=== PATIENT | female | born 1940 | race Caucasian/White ===

== ENCOUNTER 2017-09-08 11:54 | Emergency (ER) | payer OTHER ==
[2017-09-08 12:01] VITALS: PULSE 78; TEMP 98.2
[2017-09-08] MEDS ORDERED: HYDROCODONE/APAP 5/325 TAB PO ONE (12:47)
--- NOTE | 2017-09-08 12:47 | EDPHY ---
General - History Smoking Status: Never smoked Narrative: CHIEF COMPLAINT: Hip pain, knee pain HISTORY OF PRESENT ILLNESS: Patient complains of right hip pain. She complains of increasing pain that started last night. She always has pain in the right hip but worsened yesterday. She normally takes Tylenol for this. She has had Tylenol today with no improvement. It is moderate to severe. It also now involves the right knee. It is worse when she ambulates. Improved at rest. No numbness or tingling. No new trauma or injury. She arrives by EMS and is seen shortly after arrival. Her spouse is not at bedside and she does exhibit dementia. I will review her chart. ESTABLISHED ORTHOPEDIST: Unknown REVIEW OF SYSTEMS: Ten systems reviewed and are negative unless otherwise noted in the HPI PAST MEDICAL HISTORY: Osteoarthritis, hypertension, dementia PAST SURGICAL HISTORY: No recent surgeries SOCIAL HISTORY: Nonsmoker. Lives in a intermediate with her spouse FAMILY HISTORY: Noncontributory EXAMINATION General Appearance: Alert, no distress HEENT: Normocephalic atraumatic. Pupils equal round reactive. Neck: Supple nontender. Painless range in all planes Respiratory: Lungs are clear in all estrada. No crackles or diminishment. No wheezing Cardiovascular: Regular rhythm. No murmur. Pulses intact symmetrically in DP and PT. Neurological: Alert to baseline per spouse and previous documentation. Sensory symmetric in the thighs and shins. No foot drop. Strength is 5/5 in both lower extremities. Skin: Warm and dry, no rash. No petechiae or purpura. No warmth fluctuance or induration Extremities: Tenderness of the right hip that is nonspecific. Tenderness of the right knee that is difficult to pinpoint. Range of motion is symmetric passively. Unable to bear weight at this time. No shortening or rotation of the right hip. Neurovascular intact distal to the area. Psychiatric: Mood and affect normal DIFFERENTIAL DIAGNOSES: Including but not limited to osteoarthritis, fracture, dislocation, contusion, hematoma MDM: 12:15 p.m. Complaints of right hip and knee pain without known fall. The patient does exhibit advanced dementia and there is no at bedside. I will discuss with nurse and chart review for further information. She exhibits no outward signs of trauma and vital signs are stable. I have ordered x-rays of the hip and knee. 12:45 p.m. X-rays as read by me reveal no acute findings. Patient re-evaluated in conjunction with Cinda GIRON. The patient's spouse is now bedside. She does have history of dementia that he corroborates. She is complaining of right hip pain that worsened this morning. She has been on Tylenol for this but the pain has increased starting last night. There is no fall or injury. She has pain in this area that worsens with the weather at times. She has no numbness or tingling distally. She has no evidence of septic joint. No complaints of pain anywhere else. She is asking for pain medication. I verified her medications on her OCT from [facility]. She received 1000 mg of Tylenol at 8:00 a.m.. I have ordered [place] 5/325. quality control manager will be involved as well. 1:15 p.m. Patient's pain is improving we will attempt an ambulatory test. 1:30 p.m. Patient has ambulated in the coulter with no assistance. She is stable without ataxia. I have re-evaluated the patient. She still has mild pain in the hip but it is tolerable. There is no evidence of septic joint, cellulitis or abscess. We discussed the nature of pain control and discussed discharge back to her facility with [facility]. She is comfortable this plan. I recommended that she return to ED in 24-48 hours if no improvement or any worsening symptoms, fever, redness or warmth. RN will contact the nursing facility to discuss physician evaluation and possible PT evaluation. We discussed ED precautions. She is discharged in stable condition. SUPERVISION: Patient was independently examined, but I discussed the case with my secondary supervising physician Dr. Cagle ([facility]) The patient was evaluated and managed by the physician dental hygiene administrative assistant. I have reviewed this chart and I agree with the findings and plan of care as documented , as indicated by my signature. I am the secondary supervising physician. ( Lisy Cagle) - Objective Vital Signs: Initial Vital Signs Temperature (C) 36.8 C 09/08/17 11:59 Heart Rate 78 09/08/17 11:59 Respiratory Rate 16 09/08/17 11:59 Blood Pressure 167/87 H 09/08/17 11:59 O2 Sat (%) 100 09/08/17 11:59 O2 Delivery Mode Room Air Allergies/Adverse Reactions: No Known Allergies Allergy (Verified 06/07/16 14:13) Home Medications: Medication Instructions Recorded FLUoxetine [Prozac 20 MG (*)] 20 mg PO DAILY #0 cap 12/13/15 traZODone [traZODONE 100MG (*)] 50 - 100 mg PO HS PRN 03/05/16 Losartan/Hydrochlorothiazide 1 each PO DAILY 08/15/16 [Losartan-Hctz 100-25 mg Tab] Acetaminophen [Tylenol 325mg (*)] 650 mg PO Q4HRS PRN #0 tab 08/18/16 Lactulose [Cephulac 20 gm/30 ml 20 gm PO TID PRN #0 ml 08/18/16 oral soln (*)] Magnesium Hydroxide [Milk of 30 ml PO DAILY PRN #0 udcup 08/18/16 Magnesia (*)] Ondansetron Odt [Zofran Odt 4 mg 4 mg PO Q4HRS PRN #0 tab 08/18/16 (*)] Polyethylene Glycol 3350 [Miralax 17 gm PO DAILY PRN #0 pkt 08/18/16 17 gm (*)] Sennosides/Docusate Sodium 1 - 2 tab PO BID #0 tab 08/18/16 [Senokot-S] Hydrocodone/APAP 5/325 [[place] 1 - 2 tab PO Q4H PRN #13 tab 09/08/17 5/325 (*)] Medications Given: Discontinued Medications Hydrocodone Bitart/Acetaminophen ([place] 5/325) 1 tab PO EDNOW ONE Stop: 09/08/17 12:48 Last Admin: 09/08/17 12:49 Dose: 1 tab Hydrocodone Bitart/Acetaminophen ([place] 5/325mg Prepack#6) 1 btl TAKEHOME EDNOW ONE Stop: 09/08/17 15:05 Last Admin: 09/08/17 15:13 Dose: 1 btl Departure - Departure Disposition: Home, Routine, Self-Care Clinical Impression: Hip pain, right, Osteoarthritis Condition: Good Instructions: Hydrocodone/Acetaminophen (By mouth), Osteoarthritis (ED) Additional Instructions: 1. Pain medication as prescribed as needed: You may take Tylenol 1000 mg by mouth every 4-6 hours, as needed for pain. You may also take Ibuprofen (Motrin/Advil) every 6 hours by mouth with food, as needed for pain, for 5 days. If you need Ibuprofen beyond 5 days, you should consult your primary care physician to decide whether or not ongoing use is recommended. You may take [place], 1 tablet by mouth, every 4-6 hours as needed for severe pain, but you should not take this together with Tylenol, as [place] has Tylenol in it. Also, [place] will make you drowsy, so be careful when taking it. 2. Contact your primary care physician for evaluation and possible PT referral. 3. ED precautions for worsening pain, redness, warmth, fever. 4. Repeat evaluation in 24 hrs if no improvement. Referrals: Brenda Faustin MD [Primary Care Provider] - As per Instructions Prescriptions: Hydrocodone/APAP 5/325 [[place] 5/325 (*)] 1 - 2 tab PO Q4H PRN #13 tab PRN Reason: Pain, Moderate
[2017-09-08] MEDS ORDERED: HYDROCOD/APAP 5/325 PREPACK#6 BTL TAKEHOME ONE (15:04)
[2017-09-08 15:54] VITALS: BP 125/78; RESP 16; O2SAT 95
--- NOTE | 2017-09-08 16:45 | ASMTCMCOM ---
CM Note CM Note Notes: Patient presented to the ED via EMS from [facility]. Patient's Minh Court later arrived after being dropped off by a friend. Minh states he also lives at [facility]. Pt's legal guardian, Jyoti Iraheta with [facility] ([phone]) called and was updated on patient's status. [facility] unable to provide wheechair transport today, vans are not running, per Dilan Alston RN [employer]. Minh was able to contact a friend who felt comfortable transport both patient and Minh back to [place]. Jyoti contacted and she is okay with this plan. CM available for further assistance if needed. Date Signed: 09/08/2017 04:45 PM Electronically Signed By:Sheila Meek RN
--- NOTE | 2017-09-08 16:48 | ASDISCHSUM ---
Discharge Information Plan Status:Assisted Living Medically Cleared to Leave: Discharge Date:09/08/2017 03:00 PM CM D/C Disposition:Assisted Living ADT D/C Disposition:Home, Routine, Self-Care Projected Discharge Date:09/08/2017 03:00 PM Transportation at D/C:Friend Discharge Delay Reason: Follow-Up Date:09/08/2017 03:00 PM Discharge Slot: Final Diagnosis: Placement Information Patient Contact Information Contact Name:JB Relationship: Address:[address] Work Phone: City:[place] Alternate Phone: State/Zip Code:[place] [address] Email: Financial Information Financial Class: Primary Plan Desc:MEDICARE OUTPATIENT Primary Plan Number:[id number] Secondary Plan Desc: Secondary Plan Number: Assessment Information [facility] Progress Note CM Note CM Note Notes: Patient presented to the ED via EMS from [facility]. Patient's Minh Pelaez later arrived after being dropped off by a friend. Minh states he also lives at [place]. Pt's legal guardian, Jyoti Iraheta with [facility] ([phone]) called and was updated on patient's status. [facility] unable to provide wheechair transport today, vans are not running, per Dilan Alston RN Hydroelectric Plant Operator. Minh was able to contact a friend who felt comfortable transport both patient and Minh back to [place]. Jyoti contacted and she is okay with this plan. CM available for further assistance if needed. Date Signed: 09/08/2017 04:45 PM Electronically Signed By:Sheila Meek RN LACE LACE Acuity / Level of Care Answers: No. Comorbidities - select Answers: Dementia all that apply Emergency dept visits in Answers: 1 last 6 months Score: 4 Date Signed: 09/08/2017 04:47 PM Electronically Signed By:Sheila Meek RN Intervention Information
== END 2017-09-08 15:00 | disposition home or self-care (01) ==
LOC: EDUNIT#
DX: M16.11 Unilateral primary osteoarthritis, right hip (principal); I10 Essential (primary) hypertension

== ENCOUNTER 2018-03-23 14:10 | Observation (INO) | payer OTHER, MEDICAID ==
[2018-03-23] MEDS ORDERED: ASPIRIN 81 MG CHEWABLE TAB PO ONE (14:15)
--- NOTE | 2018-03-23 14:23 | CPEKG ---
Heart Rate: 76 RR Interval: 789 P-R Interval: 164 QRSD Interval: 80 QT Interval: 392 QTC Interval: 441 P [place]: 52 QRS [place]: 9 T Wave [place]: 64 EKG Severity - ABNORMAL ECG - EKG Impression: SINUS RHYTHM EKG Impression: ANTERIOR INFARCT, OLD Electronically Signed By: Cheryl Garcia 23-Mar-2018 15:11:29
[2018-03-23 14:34] LABS: PLATELET COUNT 301 10^3/uL (150-400)
--- NOTE | 2018-03-23 14:58 | EDPHY ---
H & P Smoking Status: Never smoked Time Seen by Provider: 03/23/18 14:15 HPI/ROS: HPI Chest pain. 77-year-old female by ambulance. This patient reports left-sided anterior chest pain, onset about 20 min prior to arrival to the emergency department. Pain described as a aching and cramping like sensation. Patient reports that it comes and goes in intensity. She also reports feeling mildly short of breath. She denies a history of coronary artery disease. She has a history of hypertension. She also states that she has a family history of coronary artery disease. She was given 324 mg of chewed aspirin EN route. She reports that her pain got better after this medication but she is still having some pain at this time. ROS: Constitutional: No fever, no chills. No weakness. Eyes: No discharge. No changes in vision. ENT: No sore throat. No nasal congestion or rhinorrhea. Respiratory: No cough. As above. Cardiac: As above, no palpitations. Gastrointestinal: No abdominal pain, no vomiting, no diarrhea. Genitourinary: No hematuria. No dysuria or increased frequency with urination. Musculoskeletal: No back pain. No neck pain. No myalgias or arthralgias. Skin: No rashes. Neurological: No headache. No focal weakness or altered sensation. Past medical history: CVA with residual right-sided weakness. Hypertension, appendectomy, dementia, depression. Social history: Nonsmoker. Here with her . No alcohol. Physical Exam: General Appearance: Alert, she does not appear in distress. This patient is responding to questions appropriately and in full sentences. This patient appears well-hydrated and well-nourished. Eyes: Pupils equal and round no pallor or injection. No lid edema, erythema or injection. Respiratory: There are no retractions, lungs are clear to auscultation with good air movement bilaterally. Cardiovascular: Regular rate and rhythm. No murmur appreciated. Gastrointestinal: Abdomen is soft and nontender, no masses, bowel sounds normal. No focal tenderness at McBurney's point. No Landa sign. Neurological: Motor sensory function is grossly intact and at baseline with residual right-sided weakness. Cranial nerves are normal. Skin: Warm and dry, no rashes. Musculoskeletal: Neck is supple and nontender. Extremities are symmetrical. All joints range without pain or impingement. Psychiatric: No agitation. No depression. Database: EKG: EKG time is 2:21 p.m.; EKG shows a narrow complex normal sinus rhythm with a ventricular rate of 76. The MS, QRS, QT intervals are within normal limits. QS waves noted in the anterior precordial leads. There are no ST-T wave changes indicative of ischemic or injury pattern. No evidence of right heart strain. Interpreted by me. Imaging: Chest x-ray AP portable; the cardiac mediastinal silhouette is unremarkable. No evidence of infiltrate or pneumothorax. No acute cardiopulmonary disease process noted. Interpreted by me. Procedures: Emergency department course: Triage vital signs reviewed. She is mildly hypertensive and mildly tachypneic. IV placed. She was placed on a family life counselor. EKG obtained and reviewed by myself. She has received aspirin Enroute by EMS. 3:00 p.m., care turned over to Dr. Berkowitz. Differential Diagnosis: The differential diagnosis on this patient includes but is not limited to pleurisy, costal chondritis, pericarditis, myocarditis, acute coronary syndrome. This represents a partial list of diagnoses considered. These considerations are based on history, physical exam, past history, reassessment and diagnostic testing. (Cheryl Garcia) Constitutional: Initial Vital Signs Temperature (C) 36.7 C 03/23/18 14:17 Heart Rate 81 03/23/18 14:17 Respiratory Rate 22 H 03/23/18 14:17 Blood Pressure 141/69 H 03/23/18 14:17 O2 Sat (%) 98 03/23/18 14:17 O2 Delivery Mode Room Air Allergies/Adverse Reactions: No Known Allergies Allergy (Verified 03/23/18 14:22) Home Medications: Medication Instructions Recorded FLUoxetine [Prozac 20 MG (*)] 20 mg PO DAILY #0 cap 12/13/15 traZODone [traZODONE 100MG (*)] 50 - 100 mg PO HS PRN 03/05/16 Losartan/Hydrochlorothiazide 1 each PO DAILY 08/15/16 [Losartan-Hctz 100-25 mg Tab] Acetaminophen [Tylenol 325mg (*)] 650 mg PO Q4HRS PRN #0 tab 08/18/16 Lactulose [Cephulac 20 gm/30 ml 20 gm PO TID PRN #0 ml 08/18/16 oral soln (*)] Magnesium Hydroxide [Milk of 30 ml PO DAILY PRN #0 udcup 08/18/16 Magnesia (*)] Ondansetron Odt [Zofran Odt 4 mg 4 mg PO Q4HRS PRN #0 tab 08/18/16 (*)] Polyethylene Glycol 3350 [Miralax 17 gm PO DAILY PRN #0 pkt 08/18/16 17 gm (*)] Sennosides/Docusate Sodium 1 - 2 tab PO BID #0 tab 08/18/16 [Senokot-S] Hydrocodone/APAP 5/325 [[place] 1 - 2 tab PO Q4H PRN #13 tab 09/08/17 5/325 (*)] Medical Decision Making - Diagnostics Imaging Results: Imaging Impressions Chest X-Ray 03/23/18 14:16 Impression: No source for left chest pain identified. ED Course/Re-evaluation: 1500: Patient is signed out to me at change of shift by Dr. Garcia. I went personally evaluated the patient. She complains of mild left-sided chest pain. She also has chronic right hip pain. General Appearance: Alert and no distress. Head: Pupils equal. Normal. Respiratory: Clear to auscultation bilaterally Cardiac: Regular rhythm with no rubs murmurs or gallops Extremities: No significant edema. Normal appearing. Patient has no deformity of her right hip. No significant tenderness palpation. No rash.. Skin: No rashes or lesions. Neuro: Alert. Normal mood and affect. Patient requested pain medicine for right hip. Patient did not want any imaging right hip. She has had numerous imaging studies and is not want any further workup. She was given Vicodin 1 tablet orally. I am awaiting for D- dimer results. The patient's troponin is negative. I reviewed the patient's EKG EKG: Sinus rhythm at 76. Normal axis. Normal intervals. Q-wave in V1 through V3. No ST or T-wave abnormality. Discussed case with the hospitalist service. The patient will be admitted for observation. (Jennie Berkowitz) - Data Points Laboratory Results: Laboratory Results 03/23/18 14:10 03/23/18 14:10 03/23/18 03/23/18 03/23/18 14:48 14:27 14:10 WBC RBC Hgb Hct MCV MCH MCHC RDW Plt Count MPV Neut % (Auto) Lymph % (Auto) [place] % (Auto) Eos % (Auto) Baso % (Auto) Nucleat RBC Rel Count Absolute Neuts (auto) Absolute Lymphs (auto) Absolute Monos (auto) Absolute Eos (auto) Absolute Basos (auto) Absolute Nucleated RBC Immature Gran % Immature Gran # PT 13.0 SEC SEC (12.0-15.0) INR 0.96 (0.83-1.16) APTT 27.5 SEC SEC (23.0-38.0) D-Dimer 0.43 ug/mLFEU ug/mLFEU (0.00-0.50) Sodium 133 mEq/L L mEq/L (135-145) Potassium 4.6 mEq/L mEq/L (3.3-5.0) Chloride 97 mEq/L mEq/L (97-110) Carbon Dioxide 26 mEq/l mEq/l (22-31) Anion Gap 10 mEq/L mEq/L (8-16) BUN 22 mg/dL mg/dL (7-23) Creatinine 1.1 mg/dL H mg/dL (0.6-1.0) Estimated GFR 48 Glucose 115 mg/dL H mg/dL (70-100) Calcium 10.3 mg/dL mg/dL (8.5-10.4) POC Troponin I 0.00 ng/mL ng/mL (0.00-0.08) 03/23/18 03/23/18 14:10 14:10 WBC 8.82 10^3/uL 10^3/uL (3.80-9.50) RBC 4.97 10^6/uL 10^6/uL (4.18-5.33) Hgb 14.5 g/dL g/dL (12.6-16.3) Hct 44.6 % % (38.0-47.0) MCV 89.7 fL fL (81.5-99.8) MCH 29.2 pg pg (27.9-34.1) MCHC 32.5 g/dL g/dL (32.4-36.7) RDW 12.9 % % (11.5-15.2) Plt Count 301 10^3/uL 10^3/uL (150-400) MPV 10.1 fL fL (8.7-11.7) Neut % (Auto) 81.4 % H % (39.3-74.2) Lymph % (Auto) 7.1 % L % (15.0-45.0) [place] % (Auto) 9.0 % % (4.5-13.0) Eos % (Auto) 1.4 % % (0.6-7.6) Baso % (Auto) 0.6 % % (0.3-1.7) Nucleat RBC Rel Count 0.0 % % (0.0-0.2) Absolute Neuts (auto) 7.19 10^3/uL H 10^3/uL (1.70-6.50) Absolute Lymphs (auto) 0.63 10^3/uL L 10^3/uL (1.00-3.00) Absolute Monos (auto) 0.79 10^3/uL 10^3/uL (0.30-0.80) Absolute Eos (auto) 0.12 10^3/uL 10^3/uL (0.03-0.40) Absolute Basos (auto) 0.05 10^3/uL 10^3/uL (0.02-0.10) Absolute Nucleated RBC 0.00 10^3/uL 10^3/uL (0-0.01) Immature Gran % 0.5 % % (0.0-1.1) Immature Gran # 0.04 10^3/uL 10^3/uL (0.00-0.10) PT REJ INR REJ APTT REJ D-Dimer Sodium Potassium Chloride Carbon Dioxide Anion Gap BUN Creatinine Estimated GFR Glucose Calcium POC Troponin I Medications Given: Discontinued Medications Hydrocodone Bitart/Acetaminophen ([place] 5/325) 1 tab PO EDNOW ONE Stop: 03/23/18 15:07 Last Admin: 03/23/18 15:08 Dose: 1 tab Point of Care Test Results: Chemistry 03/23/18 14:27 POC Troponin I 0.00 ng/mL ng/mL (0.00-0.08) Departure - Departure Disposition: [facility] Inpatient Acute Clinical Impression: Chest pain Qualifiers: Chest pain type: unspecified Qualified Code(s): R07.9 - Chest pain, unspecified Hip pain, chronic Qualifiers: Laterality: right Qualified Code(s): M25.551 - Pain in right hip Condition: Good Referrals: JOELLE TATE [Other] - As per Instructions
[2018-03-23] MEDS ORDERED: HYDROCODONE/APAP 5/325 TAB PO ONE (15:06)
[2018-03-23 15:16] LABS: INR 0.96 (0.83-1.16)
[2018-03-23] MEDS ORDERED: ONDANSETRON 4 MG/2 ML VIAL IVP PRN (16:06)
[2018-03-23] MEDS ORDERED: ONDANSETRON DISINTEGRATING 4 MG TAB PO PRN (16:06)
[2018-03-23] MEDS ORDERED: NS 1,000 ML IV SCH (16:15)
--- NOTE | 2018-03-23 18:48 | GHP ---
[f rep st] HISTORY AND PHYSICAL DATE OF ADMISSION: 03/23/2018 CHIEF COMPLAINT: Left-sided chest pain. HISTORY OF PRESENT ILLNESS: The patient is a 77-year-old female with a past medical history of demen tia and hypertension, who currently resides in assisted living with her , who presented to the [facility] Emergency Room after complaining of left-sided chest pain. She denies an y associated shortness of breath, nausea or vomiting. She has not had recurrent chest pain over the prior weeks, it just showed up today. It is not exertional in nature. She has no prior history of a ny heart disease. History is somewhat challenging in light of her underlying dementia. In the emerge ncy room her initial troponin was negative as was a D-dimer. Her ECG was notable for Q-waves seen in V1-V3. EXAM: MUSCULOSKELETAL: I am able to elicit the pain when pushing down on her left-sided rib cage. She denies any recent fall to the upper chest or trauma to the upper chest. Her chest pain is not po sitional in nature and is not pleuritic in nature, either. PAST MEDICAL HISTORY: 1. Dementia. 2. History of CVA. 3. Hypertension. 4. Depression. PAST SURGICAL HISTORY: Appendectomy. MEDICATIONS: 1. Losartan 100 mg daily. 2. Amlodipine 5 mg daily. 3. Prozac 20 mg daily. 4. Melatonin nightly. ALLERGIES: No known drug allergies. FAMILY HISTORY: Mother and father are both . It sounds like they lived to advanced ages and of presumably heart-related issues; but, again, history is limited secondary to her dementia. SOCIAL HISTORY: Patient is currently . No children. She currently resides at [facility] with her . She does not smoke. She does not currently drink alcohol, but has in the past. Code status was listed as a Do Not Attempt Resuscitation code status. REVIEW OF SYSTEMS: CONSTITUTIONAL: No complaints of any fevers or chills. ENT: No recent upper re spiratory illnesses. CARDIOVASCULAR: No complaints of any syncopal episodes. She does note, as an aside, occasional palpitations or fast heart rate and left-sided chest pain without radiation to the arm or neck. RESPIRATORY: No complaints of shortness of breath or productive cough. No pleuritic-t ype chest pains. GI: No nausea or vomiting. No focal abdominal pain. : No report of any diffic ulty with urination. NEUROLOGIC: No complaints of any headaches or focal weakness. HEMATOLOGIC: N o history of any deep vein thrombosis or pulmonary embolism. PSYCHIATRIC: Positive for depression miguel angel meyers, currently on SSRI therapy. ENDOCRINE: No history of diabetes or thyroid abnormalities. SKI N: No new skin rashes. MUSCULOSKELETAL: She does have some chronic right hip and leg pain, which s he describes, and it sounds like it has been discussed with her doctors previously. PHYSICAL EXAM: VITAL SIGNS: Temperature 36.7, blood pressure 141/69, heart rate 81, respirations 22 , saturating 98% on room air. GENERAL: Patient appears comfortable. She is awake, alert, conversan t, no acute distress. HEENT: Extraocular movements appear intact. Pupils equal. No scleral icteru s noted. NECK: Supple. No thyroid enlargement appreciated. CHEST: Clear to auscultation with nor mal respiratory effort. HEART: Regular rate and rhythm. No murmurs. ABDOMEN: Soft, nontender, no ndistended. : No Clemons catheter in place. EXTREMITIES: No significant pitting edema. No calf p ain with palpation. NEUROLOGIC: Cranial nerves 2-12 appear grossly intact with 5/5 strength in extr emities. LABS: White blood cell count is 8, hemoglobin 14, platelets 301. Sodium 133, potassium 4.6, chlorid e 97, bicarb 26, BUN 22, creatinine 1.1 which is slightly elevated as compared to creatinine of 1.0 i n July 2016. Glucose level is 115. Troponin is undetectable x2 occasions thus far. D-dimer neg ative. INR 0.96, PTT is 27. Chest x-ray without acute changes. ECG as detailed above. ASSESSMENT AND PLAN: 1. Chest pain. Likely suspecting musculoskeletal in nature considering that she can elicit the pain with pressure on the left-sided rib cage. However, she does have risk factors for potential heart d isease, and will trend troponins overnight and schedule for Lexiscan stress test along with an echoca rdiogram. She does have Q-waves noted, particularly in V2 and V3. Otherwise, will continue with asp irin therapy. I will hold off on NSAIDs overnight in light of the mild creatinine elevation, but if this normalizes tomorrow with IV fluids likely could try NSAIDs to see if this helps with her pain. 2. Acute kidney injury, mild, with a creatinine of 1.1, previously noted at 1.0. IV fluids overnigh t. Will recheck a metabolic panel in the morning. Considering the mild elevation, I think we can co ntinue with her current losartan; but if it worsens, consider holding. 3. Dementia. Will place for a speech Therapy consult for cognitive assessment. 4. History of cerebrovascular accident. I do not see that the patient is on statin therapy. 5. Hypertension. Continue with current amlodipine 5 mg and losartan 100 mg. 6. Depression. Continue Prozac. 7. Deep venous thrombosis prophylaxis, Lovenox. 8. Disposition. Will admit her under observation status for further assessment overnight. She has a MOST form that she came with from [place] which states a do not attempt resuscitation code status . /[id number]/MODL
[2018-03-23] MEDS: ACETAMINOPHEN 325 MG TAB PO PRN (20:35)
[2018-03-23] MEDS ORDERED: MELATONIN 3 MG TAB PO SCH (21:00)
[2018-03-24] MEDS ORDERED: amLODIPine BESYLATE 5 MG TAB PO SCH (09:00)
[2018-03-24] MEDS ORDERED: ASPIRIN 81 MG CHEWABLE TAB PO SCH (09:00)
[2018-03-24] MEDS ORDERED: ENOXAPARIN 40 MG/0.4 ML SYR SC SCH (09:00)
[2018-03-24] MEDS ORDERED: FLUoxetine 20 MG CAP PO SCH (09:00)
[2018-03-24] MEDS ORDERED: LOSARTAN POTASSIUM 50 MG TAB PO SCH (09:00)
--- NOTE | 2018-03-24 09:47 | ECHO ---
[email or web address] [address] [address] Main: [phone] Fax: Transthoracic Echocardiogram Name: JORGITO SHEARER MR#: [id number] Study Date: 03/24/2018 Study Time: 08:33 AM Date of : 1940 Age: 77 year(s) Height: 154.9 cm (61 in.) Weight: 58.06 kg (128 lb.) BSA: 1.56 m2 Gender: Female Examination: Echo Indication: Left sided chest pain Image Quality: Contrast: Requested by: Heriberto Nieto BP: 164 mmHg/71 mmHg Heart Rate: Rhythm: Indication: Left sided chest pain Procedure Staff Green Building Engineer: Marni Tsai RDCS Reading Physician: Gale Mclaughlin MD Requesting Provider: Conclusions: Normal size left ventricle. No LV hypertrophy. Normal global systolic LV function. The ejection fraction is estimated to be 65-70 %. No regional wall motion abnormality. Normal size right ventricle. Normal RV function. Mild mitral valve regurgitation is present. Mild aortic valve regurgitation is present. Mild tricuspid regurgitation is present. PA pressure not estimated. Compared with 12/11/2015 overall similar findings. PA pressure was previously normal Measurements: Chambers Valvular Assessment AV/MV Valvular Assessment TV/PV Normal Normal Normal Name Value Range Name Value Range Name Value Range Ao Elin (2D): 2.9 cm (1.4 cm-2.6 AV Vmax: 1.14 m/s (1 m/s-1.7 cm) m/s) IVSd (2D): 0.7 cm (0.6 cm-1.1 AV maxP mmHg ( - ) cm) AV meanP mmHg ( - ) LVDd (2D): 3.6 cm (3.9 cm-5.3 MV E Vmax: 0.78 m/s ( - ) cm) MV A Vmax: 1.33 m/s ( - ) LVDs (2D): 2.0 cm (2.1 cm-4 MV E/A: 0.59 ( - ) cm) LVPWd (2D): 0.7 cm ( - ) LVOTd 1.9 cm 1.9 cm mm LVEF (MOD4): 67 % (>=55 %) EF Range: 65-70 % Patient: JORGITO SHEARER Study Date: 03/24/2018 Page 1 of 2 08:33 AM Continued Measurements: Chambers Valvular Assessment AV/MV Name Value Name Value LADs: 3.2 cm MV E/E' Septal: 12.20 LADs Lon.5 cm MV E/E' Lateral: 11.70 LA Area: 14.5 cm2 MR Vena Contracta: 0.2 cm Additional Vessels Name Value Ao Ascendin.0 cm Findings: Left Ventricle: Normal size left ventricle. No LV hypertrophy. Normal global systolic LV function. The ejection fraction is estimated to be 65-70 %. No regional wall motion abnormality. Normal diastolic LV function. Right Ventricle: Normal size right ventricle. Normal RV function. Left Atrium: The left atrium is normal in size. Right Atrium: The right atrium is normal in size. Mitral Valve: Moderate mitral annular calcification. Mild mitral valve regurgitation is present. Aortic Valve: The aortic valve is normal in appearance and function. The aortic valve is tri-leaflet. Mild aortic valve regurgitation is present. Tricuspid Valve: The tricuspid valve is normal in appearance and function. Mild tricuspid regurgitation is present. PA pressure not estimated. Pulmonic Valve: The pulmonic valve is normal in appearance and function. Aorta: The aorta is normal. Pericardium: No pericardial effusion. There is pericardial fat. (No Signature Object) Patient: JORGITO SHEARER Study Date: 03/24/2018 Page 2 of 2 08:33 AM [id number]
[2018-03-24] MEDS: ACETAMINOPHEN 325 MG TAB PO PRN (10:14)
[2018-03-24] MEDS ORDERED: LIDOCAINE 4%/MENTHOL 1% PATCH TD SCH (11:45)
[2018-03-24 12:34] VITALS: BP 155/66
--- NOTE | 2018-03-24 14:36 | PDIAF ---
- Diagnosis Code Status: Do Not Resuscitate - Medication Management Discharge Medications: Medications to Continue on Transfer FLUoxetine [Prozac 20 MG (*)] 20 mg PO DAILY #0 cap 12/13/15 [Last Taken ] Magnesium Hydroxide [Milk of Magnesia (*)] 30 ml PO DAILY PRN #0 udcup 08/18/16 [Last Taken 03/20/18] Polyethylene Glycol 3350 [Miralax 17 gm (*)] 17 gm PO DAILY PRN #0 pkt 08/18/16 [Last Taken Unknown] Acetaminophen [Tylenol ES 500 mg (*)] 1,000 mg PO Q8H PRN 03/23/18 [Last Taken 03/23/18] Aspirin [Aspirin 81mg (*)] 81 mg PO DAILY 03/23/18 [Last Taken 03/23/18] Ergocalciferol [Vitamin D2 (*)] 50,000 unit PO WE 03/23/18 [Last Taken 03/18/18] Hydrocodone/APAP 5/325 [[place]st 5/325 (*)] 1 tab PO Q4H PRN 03/23/18 [Last Taken Unknown] Losartan Potassium [Cozaar 50 mg (*)] 100 mg PO DAILY 03/23/18 [Last Taken 03/23] Melatonin [Melatonin 3 MG (*)] 5 mg PO HS 03/23/18 [Last Taken 03/22/18] Nystatin [Mycostatin Cream (RX)] 30 trevor TP BID PRN 03/23/18 [Last Taken Unknown] amLODIPine BESYLATE [Norvasc 5 mg (*)] 5 mg PO DAILY 03/23/18 [Last Taken ] Discharge Medications: Refer to the Discharge Home Medication list for PRN reason. - Orders Services needed: Physical Therapy, Occupational Therapy Additional Instructions: 1. We do not think your chest pain was being caused by your heart but rather likely a musculoskeletal strain. We encourage you to try taking tylenol or ibuprofen to help with this. 2. Otherwise, we did not make any other medication changes. 3. We are recommending that you get physical and occupational therapy at [facility]. - Follow Up Care Current Providers and Referrals: JOELLE TATE [Other] - As per Instructions
--- NOTE | 2018-03-24 14:54 | ASMTCMCOM ---
CM Note CM Note Notes: Chart reviewed. Patient admitted via ED with c/o chest pain. She is known to have dementia and currently resides at [facility] with her . She has a legal guardian Abel Viveros [phone] who is to be kept apprised of plans regarding patient's disposition. Likely to [facility] with the additions of HHC from [facility]. Work up negative so far. Likely at baseline of function. Referral placed via allscripts. CM to follow Plan: Likely to return to [facility] at [place] with HHC. Date Signed: 03/24/2018 02:15 PM Electronically Signed By:Jessica Navarrete RN
--- NOTE | 2018-03-24 16:20 | PDDCSUM ---
Discharge Summary Discharge Summary: Date of Admission: 03/23/2018 Date of Discharge: 03/24/2018 Consultants: none Procedures: TTE Brief Hospital Course by Diagnosis: #Chest pain: Almost certainly MSK in nature as it is reproducible on exam. No signs of zoster. Serial troponins negative, ECG without ischemia and TTE without RWMA. Advised PRN tylenol, ibuprofen, or topical medication although patient declined new prescription for the latter. #Deconditioning: Our therapy services evaluated and recommend starting PT/OT at her assisted living facility. #Dementia: At her baseline per . Unclear etiology of this but suspect vascular component. #H/o CVA: With residual RUE mild rigidity. Not on statin therapy. #HTN: BP grossly controlled on amlodipine and losartan. #Depression: Continue fluoxetine. Items for Follow Up: 1. Recommend initiation of PT/OT at assisted living facility Tests Pending at Discharge: none Medications at Discharge: Please refer to EMR for complete medication list. We made no medication changes during this admission. Physical Exam: Vitals reviewed and patient examined on day of discharge. She is alert with improved chest discomfort.
[2018-03-24] MEDS ORDERED: PATCH REMOVAL 1 EA PATCH TD SCH (21:00)
== END 2018-03-24 16:31 | disposition home or self-care (01) ==
LOC: EDUNIT# → F2W 16:55
PROVIDERS: ADMIT Internal Medicine; ATTEND Internal Medicine
DX: Z66 Do not resuscitate (principal)
CPT/HCPCS: 71045; 93005; 93306; 97165; 97535; 99285; G0378; G8987; G8988; J1650; 84484-PO

== ENCOUNTER 2018-04-22 16:18 | Emergency (ER) | payer OTHER, MEDICAID ==
--- NOTE | 2018-04-22 16:30 | EDPHY ---
H & P - Medical/Surgical History Hx Asthma: No Hx Chronic Respiratory Disease: No Hx Diabetes: No Hx Cardiac Disease: Yes Hx Renal Disease: No Hx Cirrhosis: No Hx Alcoholism: No Hx HIV/AIDS: No Hx Splenectomy or Spleen Trauma: No Other PMH: cva with R sided weakness, htn, appendectomy, dementia, depression, expressive aphasia - Social History Smoking Status: Never smoked Time Seen by Provider: 04/22/18 16:20 HPI/ROS: CHIEF COMPLAINT: Right hip pain HISTORY OF PRESENT ILLNESS: 77-year-old female history of dementia, arrives from her snf facility at [place], after staff reported she had been complaining of 2 hr of right hip and buttock pain. No witnessed trauma. PRIMARY CARE PROVIDER: REVIEW OF SYSTEMS: A ten point review of systems was performed and is negative with the exception of the items mentioned in the HPI PAST MEDICAL/SURGICAL HISTORY: Dementia, history of CVA with residual right upper extremity rigidity. Depression. no relevant medical/surgical history SOCIAL HISTORY: Lives at [facility] PHYSICAL EXAM 1) GENERAL: Well-developed, well-nourished, alert and oriented. Appears to be in no acute distress. Answering questions appropriately. 2) HEAD: Normocephalic, atraumatic 3) HEENT: Pupils equal, round, reactive to light bilaterally. Negative Horners. Nasopharynx, oropharynx, clear. No deformity or angulation of nose. No septal hematoma. No rhinorrhea. No oral trauma. Ears bilaterally with normal tympanic membranes. No hemotympanum. No fluid or blood in the external auditory canal. No raccoon eyes. No Rosen sign. Teeth are normally aligned with no gross malocclusion, TMJ bilaterally nontender, facial bones nontender including the zygomatic arch, maxilla mandible. 4) NECK: No cervical collar is on. Posterior cervical spine is nontender, no stepoff, no effusion. Full range of motion which does not elicit any midline cervical spine pain, no posterior midline tenderness, no step-off. Cervical collar is on.Cervical collar is removed while holding inline traction and patient is unable to completely differentiate between true midline pain versus just lateral of midline pain.Cervical collar is replaced at that point.and patient has no complaints of midline cervical pain, no effusion noted, trachea midline, no JVD. 5) LUNGS: Clear to auscultation bilaterally, no wheezes, no rhonchi, no retractions. No obvious signs of trauma. No chest wall pain. No flaring, no grunting. Moving symmetrically. No crepitus. 6) HEART: [Regular rate and rhythm, 7) ABDOMEN: No guarding, tender to palpation right lower quadrant, no peritoneal signs, no signs of trauma, no ecchymosis 8) MUSCULOSKELETAL: Right lower extremity: DP PT pulses present and brisk bilaterally with no shortening or malrotation. Soft compartments throughout. Patient has excellent full active range of motion of the right hip, right knee, right foot and ankle. She has no complaints of pain with active range of motion of said locations however when I passively range the entire right lower extremity she complains of pain throughout. Otherwise, Moving all extremities, no focal areas of tenderness, no obvious trauma. 9) BACK: No midline vertebral tenderness, no fluctuance, no step-off, no obvious trauma, no visual or palpable abnormality. 10) SKIN: No laceration. No abrasion DIFFERENTIAL DIAGNOSIS: In no particular order including but not limited to compartment syndrome, fracture, sprain, strain, dislocation, acute appendicitis (Molina,Cally Emma) Constitutional: Initial Vital Signs Temperature (C) 36.5 C 04/22/18 16:32 Heart Rate 74 04/22/18 16:32 Respiratory Rate 15 04/22/18 16:32 Blood Pressure 160/93 H 04/22/18 16:32 O2 Sat (%) 94 04/22/18 16:32 O2 Delivery Mode Room Air Allergies/Adverse Reactions: No Known Allergies Allergy (Verified 04/22/18 16:42) Home Medications: Medication Instructions Recorded FLUoxetine [Prozac 20 MG (*)] 20 mg PO DAILY #0 cap 12/13/15 Magnesium Hydroxide [Milk of 30 ml PO DAILY PRN #0 udcup 08/18/16 Magnesia (*)] Polyethylene Glycol 3350 [Miralax 17 gm PO DAILY PRN #0 pkt 08/18/16 17 gm (*)] Acetaminophen [Tylenol ES 500 mg 1,000 mg PO Q8H PRN 03/23/18 (*)] Aspirin [Aspirin 81mg (*)] 81 mg PO DAILY 03/23/18 Ergocalciferol [Vitamin D2 (*)] 50,000 unit PO WE 03/23/18 Hydrocodone/APAP 5/325 [[place] 1 tab PO Q4H PRN 03/23/18 5/325 (*)] Losartan Potassium [Cozaar 50 mg 100 mg PO DAILY 03/23/18 (*)] Melatonin [Melatonin 3 MG (*)] 5 mg PO HS 03/23/18 Nystatin [Mycostatin Cream (RX)] 30 trevor TP BID PRN 03/23/18 amLODIPine BESYLATE [Norvasc 5 mg 5 mg PO DAILY 03/23/18 (*)] Docusate Sodium [Colace] 100 mg PO BID #6 cap 04/22/18 Medical Decision Making - Diagnostics Imaging Results: Imaging Impressions Hip X-Ray 04/22/18 16:30 Impression: 1. Congenitally short right acetabulum. This is anatomy that would predispose the patient to acetabular labral degeneration. 2. Low lumbar degenerative change. Might the patient symptoms be referred from the lumbar spine? Images reviewed myself (Cally Auguste) CT abdomen pelvis: Negative for perforation, obstruction, diverticulitis or appendicitis. (Taurus Varghese) ED Course/Re-evaluation: 6:09 p.m.: Re-evaluation, discussed her negative x-ray and CT scan showing no acute surgical intra-abdominal pathology. Extensive constipation noted. Patient was re-evaluated, she is resting comfortably at this time. She has been observed ambulating without assistance with stable steady gait, no complaints of pain or discomfort. At this time I think the patient can be discharged back to [facility]. manager search has been made aware. Patient feels comfortable being discharged back. I saw this patient independently based on established practice protocols. Care of patient under supervision of primary Supervising physician Dr Varghese with whom I discussed case. 7:00 p.m.: I was notified at this time by the nursing staff that the patient's power of attorney law clerk would like the patient discharged via taxi. Patient has a history of dementia. I recommended that the patient be discharged via ambulance to ensure that she gets back to her living facility however the power of attorney law clerk declines this. Was informed by the nursing staff that the power of attorney law clerk's will meet taxi and escort the patient back into her room at [place]. (Cally Auguste) - Data Points Laboratory Results: 04/22/18 16:33 POC Hgb 15.0 gm/dL gm/dL (12.6-16.3) POC Hct 44 % % (38-47) POC Sodium 135 mEq/L mEq/L (135-145) POC Potassium 4.1 mEq/L mEq/L (3.3-5.0) POC Chloride 100 mEq/L mEq/L (97-110) POC BUN 31 mg/dL H mg/dL (7-23) POC Creatinine 1.1 mg/dL H mg/dL (0.6-1.0) POC Glucose 109 mg/dL H mg/dL (70-100) Medications Given: Discontinued Medications Sodium Chloride (Ns) 1,000 mls @ 0 mls/hr IV ONCE ONE PRN Reason: Wide Open Stop: 04/22/18 16:44 Last Admin: 04/22/18 16:48 Dose: 1,000 mls Point of Care Test Results: Chemistry 04/22/18 16:33 POC Sodium 135 mEq/L mEq/L (135-145) POC Potassium 4.1 mEq/L mEq/L (3.3-5.0) POC Chloride 100 mEq/L mEq/L (97-110) POC BUN 31 mg/dL H mg/dL (7-23) POC Creatinine 1.1 mg/dL H mg/dL (0.6-1.0) POC Glucose 109 mg/dL H mg/dL (70-100) ISTAT H&H 04/22/18 16:33 POC Hgb 15.0 gm/dL gm/dL (12.6-16.3) POC Hct 44 % % (38-47) Departure - Departure Disposition: Home, Routine, Self-Care Clinical Impression: Constipation Qualifiers: Constipation type: unspecified constipation type Qualified Code(s): K59.00 - Constipation, unspecified Condition: Good Instructions: Constipation (ED), High Fiber Diet (ED) Additional Instructions: Seek immediate medical attention if you develop new or worsening symptoms, if you develop fevers, chills, inability to tolerate oral intake or any other symptoms that concerns you. Referrals: Jemma Snyder MD [Medical Doctor] - As per Instructions Prescriptions: Docusate Sodium [Colace] 100 mg PO BID #6 cap
[2018-04-22] MEDS ORDERED: NS 1,000 ML IV ONE (16:43)
[2018-04-22] MEDS ORDERED: IOPAMIDOL (ISOVUE-300) 100 ML BTL ONE (16:48)
[2018-04-22 17:40] VITALS: BP 142/99
--- NOTE | 2018-04-22 19:51 | ASMTCMCOM ---
CM Note CM Note Notes: Pt presented to the ED via EMS for right hip pain. Requested to assist pt with getting back home to her [facility] apartment at [facility] ([phone]). This CM called [facility] multiple times but no one ever answered. Pt's , Minh Pelaez, did not accompany her to the ED. This CM spoke w/Minh and he said he would prefer that patient be provided a cab and that he will plan on meeting her at the facility's front entrance and assist her into the apartment. This CM spoke with pt's legal guardian Jyoti Iraheta ([phone]) and notified her of pt's ED visit and discharge plan. Jyoti agreeable to pt returning home via cab and feels that it is a safe plan. CM available for further assistance if needed. Date Signed: 04/22/2018 07:50 PM Electronically Signed By:Sheila Meek RN
== END 2018-04-22 19:14 | disposition home or self-care (01) ==
LOC: EDUNIT#
DX: K59.00 Constipation, unspecified (principal); M25.551 Pain in right hip; Z66 Do not resuscitate
CPT/HCPCS: 73502; 74177; 96360; 99285; Q9967; 82435-PO; 82565-PO; 82947-PO; 84132-PO; 84295-PO; 84520-PO; 85014-PO